=== PATIENT | male | born 1975 | race Caucasian/White ===

== ENCOUNTER 2020-07-25 04:38 | Emergency (ER) | payer OTHER ==
[~2020-07-25] VITALS: Ht 188 cm; Wt 86.6 kg
[2020-07-25] MEDS ORDERED: LISI-167 PO (04:45)
[2020-07-25] MEDS ORDERED: ALPR0.25 PO (04:45)
[2020-07-25] MEDS ORDERED: DILTIAZEM 5 MG/ML, 5ML IVPush STA (05:01)
--- NOTE | 2020-07-25 05:02 | NUR ---
PT. TO ED WITH C/O PALPITAIONS WAKING HIM FROM SLEEP TONIGHT. C/O MILD CP AND SOB WITH THIS. EKG IN TRIAGE. HR 150'S - 180'S. PT. TAKEN TO ROOM AND PLACED ON PADS/CRASH CART TO BS. LUIS FAROOQ TO BS FOR EVAL. IV ESTABLISHED, BLOOD DRAWN, ALL MONITORS ATTACHED. BS REPORT TO JESÚS ELIZONDO TO ASSUME CARE OF PT.
[2020-07-25] MEDS ORDERED: DILTIAZEM 5 MG/ML, 5ML ONE (05:03)
--- NOTE | 2020-07-25 05:17 | NUR ---
DILT GIVEN WITH IMPROVED HR
[2020-07-25 05:29] LABS: BASOPHILS % (AUTO) 0 % (0-1); EOSINOPHILS % (AUTO) 0 % (1-7); LYMPHOCYTES % (AUTO) 11 % (22-44); MEAN CORPUSCULAR HEMOGLOBIN 30.6 pg (27.5-34.5); MEAN CORPUSCULAR HGB CONC 34.9 g/dL (33.2-36.2); MEAN PLATELET VOLUME 7.6 fL (7.4-10.4); MONOCYTES % (AUTO) 3 % (2-9); NEUTROPHILS % (AUTO) 86 % (42-75); PLATELET COUNT 503 x10^3/uL (130-400); RED BLOOD COUNT 5.07 x10^6/uL (4.38-5.82); RED CELL DISTRIBUTION WIDTH 13.6 % (9.4-14.8)
[2020-07-25] MEDS ORDERED: SODIUM CHLORIDE FLUSH 10ML SYR IVF ONE (05:30)
[2020-07-25] MEDS ORDERED: SODIUM CHLORIDE 0.9% 1,000ML IVBOLUS ONE (05:30)
[2020-07-25 05:32] LABS: MD NO
[2020-07-25 05:44] LABS: ALBUMIN 4.3 g/dL (3.4-5.0); ANION GAP 6 mmol/L (5-15); CALCIUM 9.5 mg/dL (8.5-10.1); CHLORIDE 115 mmol/L (98-107)
[2020-07-25 05:55] LABS: ALANINE AMINOTRANSFERASE 65 U/L (12-78); ALKALINE PHOSPHATASE 79 U/L (45-117); BILIRUBIN,TOTAL 0.8 mg/dL (0.2-1.0); CREATININE 0.95 mg/dL (0.7-1.3); TOTAL PROTEIN 7.6 g/dL (6.4-8.2); TROPONIN I < 0.015 ng/mL (0.000-0.045)
--- NOTE | 2020-07-25 06:18 | NUR ---
PT RESTING ON GURNEY WITH NO ACUTE DISTRESS. PT STATES HE CAN FEEL HIS HR IS IRREGULAR BUT REPORTS FEELING MUCH BETTER THEN WHEN HE ARRIVED
[2020-07-25] MEDS ORDERED: APIXABAN 5 MG TABLET PO ONE (06:30)
[2020-07-25] MEDS ORDERED: DILTIAZEM 120 MG CAP.ER.24H PO ONE (06:30)
[2020-07-25] MEDS ORDERED: APIXABAN 5 MG TABLET ONE (06:37)
[2020-07-25 06:55] VITALS: BP 130/74
== END 2020-07-25 07:03 | disposition home or self-care (01) ==
LOC: ED 06:57
DX: I48.91 Unspecified atrial fibrillation (principal); R00.2 Palpitations; I10 Essential (primary) hypertension; Z79.899 Other long term (current) drug therapy
CPT/HCPCS: 36415; 71045; 80053; 83735; 84443; 84484; 85025; 85379; 93005; 96361; 96374; 99285; J7030

== ENCOUNTER → 2021-01-11 | Outpatient (CLI) | payer OTHER ==
[~2021-01-11] MED LIST: ALPR0.25 PO; LISI-167 PO
== END | disposition home or self-care (01) ==
LOC: CFH 08:07
PROVIDERS: ATTEND Internal Medicine Cardiovascular Disease
DX: I48.91 Unspecified atrial fibrillation (principal); R06.02 Shortness of breath; E78.2 Mixed hyperlipidemia; I10 Essential (primary) hypertension; F17.200 Nicotine dependence, unspecified, uncomplicated
CPT/HCPCS: 71046